=== PATIENT | male | born 1995 | race Hispanic/Latino ===

== ENCOUNTER 2017-10-17 17:07 | Emergency (ER) | payer BC ==
[2017-10-17 17:15] VITALS: O2SAT 100
[2017-10-17] MEDS ORDERED: DiphenhydrAMINE 50 mg/ml Inj IVP STA (17:39)
[2017-10-17] MEDS ORDERED: Sodium Chloride 0.9% 1,000 ML IV STA (17:39)
[2017-10-17] MEDS ORDERED: DiphenhydrAMINE 50 mg/ml Inj ONE (17:45)
[2017-10-17 18:13] LABS: BASO % 0.3 % (0.0-2.0); EOS % 0.2 % (0.0-4.0); LYMPH # 0.3 K/uL (1.0-4.3); LYMPH % 2.4 % (20.0-40.0); MEAN CELL VOLUME 90.8 fl (80.0-94.0); MEAN CORPUSCULAR HEMOGLOBIN 30.7 pg (27.0-31.0); MEAN CORPUSCULAR HGB CONC 33.8 g/dL (33.0-37.0); MEAN PLATELET VOLUME 9.2 fl (7.2-11.7); MONO # 0.6 K/uL (0.0-0.8); MONO % 3.9 % (0.0-10.0); NEUT # 13.3 K/uL (1.8-7.0); NEUT % 93.2 % (50.0-75.0); PLATELET COUNT 199 K/uL (130-400); RBC 5.23 Mil/uL (4.40-5.90); WHITE BLOOD COUNT 14.3 K/uL (4.8-10.8)
--- NOTE | 2017-10-17 18:27 | ED PDOC ---
HPI: Abdomen Time Seen by Provider: 10/17/17 17:21 Chief Complaint (Nursing): Abdominal Pain Chief Complaint (Provider): Abdominal Pain History Per: Patient History/Exam Limitations: no limitations Onset/Duration Of Symptoms: Days (x1) Current Symptoms Are (Timing): Still Present Associated Symptoms: Vomiting, Diarrhea Additional Complaint(s): 22-year-old male presents to the ER complaining of abdominal pain, vomiting, and diarrhea for 1 day. Patient reports he started feeling stomach discomfort around 1AM last night before going to bed. This morning the pain worsened and he developed vomiting and diarrhea. Hes had about 8 episodes of watery non- bloody diarrhea, and 5-6 episodes of non-bilious vomiting. He reports the last few episodes of emesis were blood-tinged. He also complains of chills, fatigue, body aches, and weakness. No known sick contacts. No recent travel or antibiotics. He ate food last night but reports everyone else who ate it seems fine. PMD: None Past Medical History Reviewed: Historical Data, Nursing Documentation, Vital Signs Vital Signs: Last Vital Signs Temp 98.4 F 10/17/17 17:12 Pulse 94 H 10/17/17 17:12 Resp 20 10/17/17 17:12 BP 151/104 H 10/17/17 17:12 Pulse Ox 100 10/17/17 18:31 - Medical History PMH: No Chronic Diseases - Surgical History Surgical History: Hernia Repair - Family History Family History: States: Unknown Family Hx - Social History Current smoker - smoking cessation education provided: No Alcohol: Social Drugs: Denies - Home Medications Home Medications: Ambulatory Orders Medication Instructions Recorded Dicyclomine [Bentyl] 20 mg PO BID PRN #30 tab 10/17/17 Ondansetron ODT [Zofran ODT] 1 odt PO Q6 PRN #20 odt 10/17/17 - Allergies Allergies/Adverse Reactions: Allergies Allergy/AdvReac Type Severity Reaction Status Date / Time No Known Allergies Allergy Verified 10/17/17 17:12 Review of Systems ROS Statement: Except As Marked, All Systems Reviewed And Found Negative (as per HPI, otherwise negative) Constitutional: Positive for: Chills, Weakness (generalized), Other (body aches , fatigue) Gastrointestinal: Positive for: Vomiting, Abdominal Pain, Diarrhea Physical Exam - Reviewed Nursing Documentation Reviewed: Yes Vital Signs Reviewed: Yes - Physical Exam Appears: Positive for: Non-toxic, In Acute Distress Head Exam: Positive for: ATRAUMATIC, NORMOCEPHALIC Skin: Positive for: Warm, Dry Eye Exam: Positive for: EOMI, PERRL ENT: Positive for: Pharynx Is (clear, with tacky mucus membranes) Neck: Positive for: Painless ROM, Supple Cardiovascular/Chest: Positive for: Regular Rate, Rhythm. Negative for: Murmur Respiratory: Positive for: Normal Breath Sounds. Negative for: Wheezing Gastrointestinal/Abdominal: Positive for: Bowel Sounds, Soft, Tenderness ( diffuse). Negative for: Mass, Distended, Guarding, Rebound Back: Positive for: Normal Inspection. Negative for: Decreased ROM Extremity: Positive for: Normal ROM. Negative for: Deformity Lymphatic: Negative for: Adenopathy Neurologic/Psych: Positive for: Alert. Negative for: Motor/Sensory Deficits - Laboratory Results Result Diagrams: 10/17/17 17:57 10/17/17 17:57 - ECG O2 Sat by Pulse Oximetry: 100 (RA) Pulse Ox Interpretation: Normal Medical Decision Making Medical Decision Making: Time: 17:39 Initial Impression: Vomiting, diarrhea, abdominal pain Differentials include gastroenteritis, viral syndrome, dehydration, electrolyte abnormality, pancreatitis, and colitis. Initial Plan: * CMP * Lactic acid * Lipase * Magnesium * Phosphorous * CBC w/ differential * NS IV 1000 ml at 1000 mls/hr * Promethazine 25 mg IV * Dextrose 1000 ml IV at 100 mls/hr * Benadryl 25 mg IVP * Stool culture * Ova and parasite * ED urine dipstick * Pending reevaluation Offered morphine for pain control, and patient declined. Scribe Attestation: Documented by Pao Lee, acting as a scribe for Rashmi Pozo MD Provider Scribe Attestation: All medical record entries made by the Scribe were at my direction and personally dictated by me. I have reviewed the chart and agree that the record accurately reflects my personal performance of the history, physical exam, medical decision making, and the department course for this patient. I have also personally directed, reviewed, and agree with the discharge instructions and disposition. Disposition - Clinical Impression Clinical Impression: Vomiting and diarrhea, Abdominal pain - Disposition Referrals: [facility] [Outside] (FOLLOW UP WITH YOUR DOCTOR OR [facility] IN 48 HOURS FOR [facility]) Disposition: Routine/Home Disposition Time: 19:00 Condition: IMPROVED Additional Instructions: BLAND DIET WITH PLENTY OF HYDRATING FLUIDS FOR THE NEXT 24 HOURS Prescriptions: Dicyclomine [Bentyl] 20 mg PO BID PRN #30 tab PRN Reason: abdominal pain Ondansetron ODT [Zofran ODT] 1 odt PO Q6 PRN #20 odt PRN Reason: Nausea/Vomiting Instructions: Gastroenteritis (ED), Abdominal Pain (ED) Forms: [facility]ighborhood[facility] ([place])
[2017-10-17 18:49] LABS: ALB/GLOB RATIO 1.7 (1.0-2.1); ALT/SGPT 92 U/L (21-72); AST/SGOT 37 U/L (17-59); BLOOD UREA NITROGEN 17 mg/dl (9-20); GFR AFRICAN-AMERICAN > 60; GFR NON-AFRICAN AMERICAN > 60; LIPASE 33 U/L (23-300); MAGNESIUM 1.8 MG/DL (1.6-2.3)
[2017-10-17 18:58] LABS: LYMPHOCYTE 3 % (20-50); MONOCYTE 5 % (0-10); NEUTROPHIL 92 % (42-75); PLATELET ESTIMATE NORMAL (NORMAL); TOTAL CELLS COUNTED 100
[2017-10-17] MEDS ORDERED: Potassium & Sodium Phosphate PO ONE (19:30)
[2017-10-17 21:05] VITALS: BP 127/70; PULSE 89; RESP 16; TEMP 98
== END 2017-10-17 20:00 | disposition home or self-care (01) ==
LOC: H.ER 17:07
DX: K52.9 Noninfective gastroenteritis and colitis, unspecified (principal)
CPT/HCPCS: 80053; 83605; 83690; 83735; 84100; 85025; 87045; 87177; 87209; 96374; 99283; J1200; J2550; J7040